=== PATIENT | female | born 1965 | race Caucasian/White ===

== ENCOUNTER → 2020-02-22 | Outpatient (CLI) | payer SELFPAY | LOC: GOCC 22:21 | PROVIDERS: ATTEND General Practice | DX: N39.0 Urinary tract infection, site not specified (principal) ==

== ENCOUNTER 2020-02-24 01:16 | Emergency (ER) | payer SELFPAY ==
[2020-02-24] MEDS ORDERED: SODIUM CHLORIDE 0.9% 1000ML 1,000 ML IVS PRN (01:37)
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
[2020-02-24] MEDS ORDERED: cefTRIAXone SODIUM 1 GM in SODIUM CHL 0.9% 50ML MIN-BAG+ 50 ML IVPB ONE (03:04)
--- NOTE | 2020-02-24 03:42 | RAD ---
EXAM DESCRIPTION: Chest,1 View CLINICAL HISTORY: altered mental status COMPARISON: None. FINDINGS: Single frontal view of the chest. Cardiomediastinal silhouette: Normal size and contour. Leads overlie the chest. Lungs: Left mid and lower lung airspace opacity. Low lung volumes. No pneumothorax. Bones: Postoperative change of the thoracolumbar spine. Upper abdomen: Prior cholecystectomy. IMPRESSION: 1. Left mid and lower lung opacity concerning for pneumonia. Electronically signed by: Arash Ellis 02/24/2020 3:40 AM CDT
--- NOTE | 2020-02-24 03:47 | CT ---
EXAM DESCRIPTION: CT of the head without contrast CLINICAL HISTORY: ams COMPARISON: None available TECHNIQUE: Axial CT of the head obtained from the skull apex to the skull base without contrast. FINDINGS: No acute intracranial hemorrhage identified. No mass, mass effect, shift of the midline, abnormal extra-axial fluid collection or CT evidence of acute ischemic change identified. The ventricular system and sulcal spaces are nonenlarged. Scattered areas of hypodensity throughout the supratentorial white matter are nonspecific and may be related to chronic small vessel ischemic change. The visualized paranasal sinuses and the mastoids are clear. No skull fracture identified. Visualized orbits and globes are unremarkable. Atherosclerotic calcification of the intracranial internal carotid arteries. IMPRESSION: 1. No acute intracranial abnormality by CT criteria. This exam was performed according to our departmental dose-optimization program, which includes automated exposure control, adjustment of the mA and/or kV according to patient size and/or use of iterative reconstruction technique. Electronically signed by: Arash Ellis 02/24/2020 3:45 AM CDT
[2020-02-24] MEDS ORDERED: CEFEPIME 2 GM in SODIUM CHL 0.9% 100ML MINI-BAG 100 ML IVPB ONE (04:05)
[2020-02-24 04:27] VITALS: O2SAT 94
[2020-02-24] MEDS ORDERED: NOREPINEPHRINE BITARTRATE 4 MG in DEXTROSE 5% 250ML 250 ML IVPB SCH (04:30)
[2020-02-24 05:04] VITALS: BP 80/54; TEMP 97.4
--- NOTE | 2020-02-24 05:15 | CT ---
EXAM: CT abdomen and pelvis without intravenous contrast CLINICAL DATA: 54-year-old female with sepsis TECHNICAL DATA: Axial CT imaging of the abdomen and pelvis was performed without oral or intravenous contrast. Sagittal and coronal reconstructed images were then performed. The CT study is performed according to ALARA (as low as reasonably achievable) or ALARA/IMAGE GENTLY, with automatic adjustment of mA and/or kV according to patient size. Performed on: 02/24/2020 at 4:15 AM Comparison: None. FINDINGS: Lung bases: The lung bases are clear. There is minimal bibasilar atelectasis and/or fibrosis. Liver: The liver is enlarged and measures 20.3 cm in craniocaudal dimension. No focal hepatic abnormalities are appreciated on this unenhanced scan. Liver attenuation is within normal limits. Spleen: The spleen is enlarged and measures approximately 14.4 cm in craniocaudal dimension. No focal splenic abnormalities are appreciated on this unenhanced scan. Gallbladder and bile duct: The gallbladder is surgically absent. There is no biliary ductal dilatation. Pancreas: The pancreas is grossly normal in size and configuration. Adrenal Glands:The adrenal glands are normal in size and configuration. Kidneys:The kidneys are normal in size and configuration. There appears to be mild bilateral hydronephrosis without evidence of urinary tract obstruction. There is no evidence of nephrolithiasis. No focal renal abnormalities are identified. Stomach:The stomach is grossly normal. There is no definite hiatal hernia. Bowel:The bowel gas pattern is non specific and non obstructive. There is scattered colonic diverticulosis. Appendix: The appendix is normal. Free air:There is no evidence of free air. Free fluid: There is no evidence of free fluid. Vasculature: The aorta is normal in caliber and contour. The inferior vena cava is grossly unremarkable. Lymphadenopathy: There appear to be prominent retroperitoneal lymph nodes. Evaluation is somewhat limited without intravenous contrast. Bladder: The bladder is well distended. There is a Avelar catheter in the bladder and there is air in the bladder which is likely iatrogenic in nature related to the Avelar catheter. A gas forming infection is not entirely excluded. Reproductive: The uterus is grossly within normal limits. Bones: No acute osseous abnormalities are identified. There are remote postsurgical changes of the thoracolumbar spine consistent with posterior decompression and fusion from T9 through L2. No definite hardware failure is identified. Soft tissues: No focal soft tissue abnormalities are identified. There is streak artifact related to the indwelling thoracolumbar hardware and overlying quality assurance monitor chassis leads which does result in slight degradation of image quality. IMPRESSION: 1. Hepatosplenomegaly.. 2. Mild bilateral hydronephrosis without clear etiology. There is no evidence of ureterolithiasis. 3. Prominent retroperitoneal lymph nodes. Evaluation is somewhat limited without intravenous contrast. 4. Air in the bladder which may be iatrogenic in nature related to the indwelling Avelar catheter. A gas forming infection is not entirely excluded. 5. Scattered colonic diverticulosis. 6. Remote cholecystectomy. 7. There is streak artifact on the images related to the patient's thoracolumbar hardware and overlying quality assurance monitor chassis leads which does result in slight degradation of image quality. Electronically signed by: Izzy Morales DO 02/24/2020 5:13 AM CDT
== END 2020-02-24 05:18 | disposition short-term general hospital (02) ==
LOC: ER 01:16
DX: U07.1 COVID-19 (principal); A41.9 Sepsis, unspecified organism; R65.21 Severe sepsis with septic shock; E87.1 Hypo-osmolality and hyponatremia; J18.9 Pneumonia, unspecified organism; Y95 Nosocomial condition; T83.511A Infection and inflammatory reaction due to indwelling urethral catheter, initial encounter; Y84.6 Urinary catheterization as the cause of abnormal reaction of the patient, or of later complication, without mention of misadventure at the time of the procedure; N17.9 Acute kidney failure, unspecified; R31.0 Gross hematuria; G82.20 Paraplegia, unspecified; Z87.820 Personal history of traumatic brain injury; Z79.899 Other long term (current) drug therapy; Z88.8 Allergy status to other drugs, medicaments and biological substances
CPT/HCPCS: 70450; 71045; 74176; 80053; 80307; 80329; 81001; 82140; 82550; 82553; 83605; 83735; 84100; 84300; 84443; 84484; 85025; 85610; 85730; 87040; 87077; 87086; 87186; 87635; J0692; J0696; J7030; J7050; J7060

== ENCOUNTER 2020-03-10 13:11 | Emergency (ER) | payer SELFPAY ==
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
[2020-03-10] MEDS ORDERED: SODIUM CHLORIDE 0.9% 1000ML 1,000 ML IVS ONE ×2 (14:02→16:49)
[2020-03-10] MEDS ORDERED: VANCOMYCIN HCL INJ 1,000 MG, VANCOMYCIN HCL INJ 500 MG in SODIUM CHLORIDE 0.9% 250ML 25... IVPB ONE (14:03)
[2020-03-10] MEDS ORDERED: PIPERACILLIN/TAZOBACTAM 3.375 GM in SODIUM CHLORIDE 0.9% 100ML 100 ML IVPB ONE (14:03)
[2020-03-10] MEDS ORDERED: levoFLOXacin 750MG IV 750 MG in PREMIX BAG 1 BAG IVPB ONE (18:55)
[2020-03-10] MEDS ORDERED: NOREPINEPHRINE BITARTRATE 4 MG in DEXTROSE 5% 250ML 250 ML IVPB SCH (19:00)
[2020-03-10] MEDS ORDERED: LIDOCAINE 1% 10 ML VIAL INJ ONE (19:11)
[2020-03-10 20:04] VITALS: BP 132/79; TEMP 98.2; O2SAT 95
--- NOTE | 2020-03-10 20:13 | RAD ---
EXAM DESCRIPTION: Chest,1 View CLINICAL HISTORY: fever COMPARISON: February 24, 2020 IMPRESSION: Single AP portable upright view of the chest shows mild enlargement of the cardiac silhouette without pulmonary vascular congestion.. Lungs are normally aerated and clear. Interval resolution of the left mid to lower chest infiltrate seen on previous exam. Spinal hardware fixation of the lower thoracic to upper lumbar spine is again seen. No obvious pleural effusion or pneumothorax is seen. Electronically signed by: Mendel Canseco MD 03/10/2020 2:33 PM CDT
--- NOTE | 2020-03-10 20:18 | RAD ---
EXAM DESCRIPTION: Chest,1 View CLINICAL HISTORY: 54 years Female, post central line COMPARISON: 03/10/2020 TECHNIQUE: Single AP chest radiograph. FINDINGS: Interval placement of a right IJ central venous catheter with tip terminating in the right atrium. No pneumothorax. Stable cardiac mediastinal contour and bilateral pulmonary opacities. No pleural effusion. Thoracolumbar fixation hardware again noted. IMPRESSION: 1. Right central venous catheter tip terminates in the right atrium. No pneumothorax. 2. Stable pulmonary opacities. Electronically signed by: Rayo Shi MD 03/10/2020 8:11 PM CDT
== END 2020-03-10 20:35 | disposition short-term general hospital (02) ==
LOC: ER 13:11
DX: A41.89 Other specified sepsis (principal); U07.1 COVID-19; N12 Tubulo-interstitial nephritis, not specified as acute or chronic; R65.20 Severe sepsis without septic shock; Z87.891 Personal history of nicotine dependence; G82.20 Paraplegia, unspecified; Z90.49 Acquired absence of other specified parts of digestive tract; Z79.899 Other long term (current) drug therapy
CPT/HCPCS: 36415; 71045; 80053; 81001; 83605; 85025; 87040; 87086; 87635; 93005; J1956; J2543; J3370; J7030; J7050; J7060

== ENCOUNTER 2020-04-03 17:10 | Emergency (ER) | payer MEDICAID ==
[2020-04-03] MEDS ORDERED: SODIUM CHLORIDE 0.9% 1000ML 1,000 ML IVS ONE ×2 (17:19→19:00)
[2020-04-03] MEDS ORDERED: cefTRIAXone SODIUM 2 GM in SODIUM CHL 0.9% 100ML MINI-BAG 100 ML IVPB ONE (17:19)
[2020-04-03] MEDS ORDERED: SODIUM CHLORIDE 0.9% (FLUSH) 10 ML SYG IV PRN (17:19)
[2020-04-03] MEDS ORDERED: SODIUM CHLORIDE 0.9% 1000ML 2,000 ML IVS ONE (17:20)
[2020-04-03] MEDS ORDERED: CEFEPIME 2 GM in SODIUM CHL 0.9% 100ML MINI-BAG 100 ML IVPB ONE (17:26)
[2020-04-03] MEDS ORDERED: HYDROCORTISONE SOD SUCC INJ 100 MG/2 ML VIAL IV ONE (17:46)
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
--- NOTE | 2020-04-03 18:29 | RAD ---
EXAM DESCRIPTION: Chest,1 View CLINICAL HISTORY: 54 years Female possible sepsis COMPARISON: 03/10/2020 FINDINGS: The cardiomediastinal silhouette appears unremarkable. No definite pleural effusion. Patchy pulmonary opacities unchanged from the prior examination. No pneumothorax. Post surgical changes in the spine. IMPRESSION: Unchanged appearance of the chest Electronically signed by: Leonor Benson MD 04/03/2020 6:27 PM CDT
[2020-04-03] MEDS ORDERED: SODIUM CHLORIDE 0.9% 1000ML 1,000 ML ONE (19:03)
[2020-04-03 20:16] VITALS: TEMP 97.4
[2020-04-03 20:18] VITALS: BP 92/63; O2SAT 97
== END 2020-04-03 19:40 | disposition short-term general hospital (02) ==
LOC: ER 17:10
DX: A41.9 Sepsis, unspecified organism (principal); N17.9 Acute kidney failure, unspecified; D72.829 Elevated white blood cell count, unspecified; T83.511A Infection and inflammatory reaction due to indwelling urethral catheter, initial encounter; G82.20 Paraplegia, unspecified; R00.0 Tachycardia, unspecified; Z87.820 Personal history of traumatic brain injury; Z87.891 Personal history of nicotine dependence; I95.9 Hypotension, unspecified
CPT/HCPCS: 36415; 71045; 80053; 81001; 83605; 85025; 85610; 85730; 87040; 87086; 87088; 87186; 93005; J0692; J1720; J7030; J7050

== ENCOUNTER 2020-04-15 16:57 | Inpatient (IN) | payer MEDICAID, OTHER ==
[2020-04-15] MEDS ORDERED: CEFEPIME 1 GM in SODIUM CHLORIDE 0.9% 50ML 50 ML IVPB ONE (17:18)
[2020-04-15] MEDS ORDERED: levoFLOXacin 500MG IV 500 MG in PREMIX BAG 1 BAG IVPB ONE (17:18)
[2020-04-15] MEDS ORDERED: SODIUM CHLORIDE 0.9% 1000ML 1,000 ML IVS ONE (18:43)
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
[2020-04-15] MEDS ORDERED: ONDANSETRON ODT 8 MG TAB ONE (18:58)
[2020-04-15] MEDS ORDERED: ONDANSETRON ODT 8 MG TAB SL ONE (19:05)
[2020-04-15] MEDS ORDERED: FLUCONAZOLE 100 MG TAB PO ONE (19:14)
[2020-04-15] MEDS ORDERED: methylPREDNISolone SODIUM SUC 125 MG/2 ML VIAL IV ONE (19:14)
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
[2020-04-15] MEDS ORDERED: ACETAMINOPHEN 500 MG TAB PO ONE (20:18)
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
[2020-04-15] MEDS ORDERED: ALBUTEROL SULFATE 2.5 MG/3 ML VIAL NEB PRN (22:37)
[2020-04-15] MEDS ORDERED: SODIUM CHLORIDE 0.9% (FLUSH) 10 ML SYG IV PRN (22:37)
[2020-04-15] MEDS ORDERED: IV SET AND CAP CHANGE INJ INJ SCH (23:00)
[2020-04-16] MEDS: SODIUM CHLORIDE 0.45% 1000ML 1,000 ML IV PRN ×2 (00:02→15:19)
[2020-04-16] MEDS ORDERED: SODIUM CHLORIDE 0.9% 50ML 50 ML ONE (05:02)
[2020-04-16] MEDS ORDERED: CEFEPIME 2 GM VIAL ONE (05:02)
[2020-04-16] MEDS: CEFEPIME 1 GM in SODIUM CHLORIDE 0.9% 50ML 50 ML IVPB SCH ×2 (05:41→18:25)
[2020-04-16] MEDS: MAGNESIUM HYDROXIDE 30 ML UD PO SCH ×2 (05:42→09:53)
[2020-04-16] MEDS ORDERED: [UNRECOGNIZED DRUG - OTHER] PO SCH (09:00)
[2020-04-16] MEDS: MEGESTROL ACETATE SUSP 400 MG/10 ML UD PO SCH (09:52)
[2020-04-16] MEDS: BISACODYL TAB 5 MG TAB PO SCH (09:53)
[2020-04-16] MEDS: FERROUS SULFATE 325 MG TAB PO SCH (09:53)
[2020-04-16] MEDS: FOLIC ACID 1 MG TAB PO SCH (09:53)
[2020-04-16] MEDS: ASPIRIN (ENTERIC COATED) 81 MG TAB PO SCH (09:53)
[2020-04-16] MEDS: GABAPENTIN 300 MG CAP PO SCH (09:53)
[2020-04-16] MEDS: DOCUSATE SODIUM 100 MG CAP PO SCH (09:53)
[2020-04-16] MEDS: levoFLOXacin 500MG IV 500 MG in PREMIX BAG 1 BAG IVPB SCH (09:54)
[2020-04-16] MEDS: DOXAZOSIN MESYLATE 2 MG TAB PO SCH (09:58)
[2020-04-16] MEDS: LACTOBACILLUS 1 TAB PO SCH ×3 (09:59→20:35)
[2020-04-16] MEDS: POLYETHYLENE GLYCOL 3350 17 GM PCKT PO SCH (10:03)
[2020-04-16] MEDS: SODIUM CHLORIDE 0.9% (FLUSH) 10 ML SYG IV SCH ×2 (10:03→20:36)
[2020-04-16] MEDS: NICOTINE PATCH 14 MG TD SCH (13:16)
[2020-04-16] MEDS: NON-FORMULARY MEDICATION 1 EA MIS (Methocarbamol [Methocarbamol] 500 MG) PO SCH ×2 (18:25→20:36)
[2020-04-16] MEDS ORDERED: hydrOXYzine HCl 25 MG TAB ONE (19:12)
[2020-04-16] MEDS ORDERED: MELATONIN 3 MG TAB ONE (19:12)
[2020-04-16] MEDS ORDERED: ENOXAPARIN SODIUM 40 MG/0.4 ML SYG SUBCU ONE (19:13)
[2020-04-16] MEDS ORDERED: risperiDONE 0.25 MG TAB ONE (19:13)
[2020-04-16] MEDS: hydrOXYzine HCl 25 MG TAB PO SCH (20:33)
[2020-04-16] MEDS: MELATONIN 3 MG TAB PO SCH (20:33)
[2020-04-16] MEDS: risperiDONE 1 MG TAB PO SCH (20:34)
[2020-04-16] MEDS: ENOXAPARIN SODIUM 40 MG/0.4 ML SYG SUBCU SCH (20:38)
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
[2020-04-16] MEDS: ACETAMINOPHEN 325 MG TAB PO PRN (23:03)
[2020-04-17] MEDS: SODIUM CHLORIDE 0.45% 1000ML 1,000 ML IV PRN ×2 (04:53→19:37)
[2020-04-17] MEDS: CEFEPIME 1 GM in SODIUM CHLORIDE 0.9% 50ML 50 ML IVPB SCH ×2 (05:37→18:22)
[2020-04-17] MEDS: POLYETHYLENE GLYCOL 3350 17 GM PCKT PO SCH (09:53)
[2020-04-17] MEDS: levoFLOXacin 500MG IV 500 MG in PREMIX BAG 1 BAG IVPB SCH (09:54)
[2020-04-17] MEDS: BISACODYL TAB 5 MG TAB PO SCH (09:54)
[2020-04-17] MEDS: GABAPENTIN 300 MG CAP PO SCH (09:54)
[2020-04-17] MEDS: DOXAZOSIN MESYLATE 2 MG TAB PO SCH (09:54)
[2020-04-17] MEDS: ACETAMINOPHEN 325 MG TAB PO PRN ×2 (09:54→23:50)
[2020-04-17] MEDS: FERROUS SULFATE 325 MG TAB PO SCH (09:55)
[2020-04-17] MEDS: FOLIC ACID 1 MG TAB PO SCH (09:55)
[2020-04-17] MEDS: DOCUSATE SODIUM 100 MG CAP PO SCH (09:55)
[2020-04-17] MEDS: MEGESTROL ACETATE SUSP 400 MG/10 ML UD PO SCH (09:55)
[2020-04-17] MEDS: ASPIRIN (ENTERIC COATED) 81 MG TAB PO SCH (09:55)
[2020-04-17] MEDS: LACTOBACILLUS 1 TAB PO SCH ×3 (09:56→21:24)
[2020-04-17] MEDS: NON-FORMULARY MEDICATION 1 EA MIS (Methocarbamol [Methocarbamol] 500 MG) PO SCH ×2 (09:57→14:57)
[2020-04-17] MEDS: SODIUM CHLORIDE 0.9% (FLUSH) 10 ML SYG IV SCH ×2 (09:57→21:25)
[2020-04-17] MEDS: NICOTINE PATCH 14 MG TD SCH (09:57)
[2020-04-17] MEDS: REMOVE OLD PATCH TOP SCH (09:57)
[2020-04-17] MEDS ORDERED: METHOCARBAMOL 750 MG TAB PO ONE (15:06)
[2020-04-17] MEDS ORDERED: METHOCARBAMOL 750 MG TAB ONE (18:26)
[2020-04-17] MEDS ORDERED: risperiDONE 0.25 MG TAB ONE (19:07)
[2020-04-17] MEDS: MELATONIN 3 MG TAB PO SCH (21:24)
[2020-04-17] MEDS: hydrOXYzine HCl 25 MG TAB PO SCH (21:24)
[2020-04-17] MEDS: ENOXAPARIN SODIUM 40 MG/0.4 ML SYG SUBCU SCH ×2 (21:24→21:36)
[2020-04-17] MEDS: risperiDONE 1 MG TAB PO SCH (21:25)
[2020-04-17] MEDS: METHOCARBAMOL 750 MG TAB PO SCH (21:33)
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
[2020-04-18] MEDS: CEFEPIME 1 GM in SODIUM CHLORIDE 0.9% 50ML 50 ML IVPB SCH (05:58)
[2020-04-18] MEDS: GABAPENTIN 300 MG CAP PO SCH (10:05)
[2020-04-18] MEDS: DOCUSATE SODIUM 100 MG CAP PO SCH (10:05)
[2020-04-18] MEDS: MEGESTROL ACETATE SUSP 400 MG/10 ML UD PO SCH (10:05)
[2020-04-18] MEDS: FOLIC ACID 1 MG TAB PO SCH (10:05)
[2020-04-18] MEDS: METHOCARBAMOL 750 MG TAB PO SCH (10:05)
[2020-04-18] MEDS: ASPIRIN (ENTERIC COATED) 81 MG TAB PO SCH (10:06)
[2020-04-18] MEDS: FERROUS SULFATE 325 MG TAB PO SCH (10:06)
[2020-04-18] MEDS: BISACODYL TAB 5 MG TAB PO SCH (10:06)
[2020-04-18] MEDS: DOXAZOSIN MESYLATE 2 MG TAB PO SCH (10:06)
[2020-04-18] MEDS: NICOTINE PATCH 14 MG TD SCH (10:06)
[2020-04-18] MEDS: REMOVE OLD PATCH TOP SCH (10:07)
[2020-04-18] MEDS: levoFLOXacin 500MG IV 500 MG in PREMIX BAG 1 BAG IVPB SCH (10:07)
[2020-04-18] MEDS: SODIUM CHLORIDE 0.9% (FLUSH) 10 ML SYG IV SCH (10:07)
[2020-04-18] MEDS: LACTOBACILLUS 1 TAB PO SCH (10:07)
[2020-04-18] MEDS: POLYETHYLENE GLYCOL 3350 17 GM PCKT PO SCH (10:07)
[2020-04-18 15:41] VITALS: BP 108/64; TEMP 98.1; O2SAT 97
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
== END 2020-04-18 12:30 | DRG 698 ==
LOC: ER 16:57 → MS 22:00 → UNDOADMIN 22:00 → MS 22:01
PROVIDERS: ADMIT Nurse Practitioner Acute Care; ATTEND Nurse Practitioner Family
DX: T83.511A Infection and inflammatory reaction due to indwelling urethral catheter, initial encounter (principal); A41.52 Sepsis due to Pseudomonas; N12 Tubulo-interstitial nephritis, not specified as acute or chronic; L89.153 Pressure ulcer of sacral region, stage 3; G82.20 Paraplegia, unspecified; K59.09 Other constipation; F17.210 Nicotine dependence, cigarettes, uncomplicated; J44.9 Chronic obstructive pulmonary disease, unspecified; Z88.8 Allergy status to other drugs, medicaments and biological substances; Z86.19 Personal history of other infectious and parasitic diseases

== ENCOUNTER 2020-06-29 02:37 | Inpatient (IN) | payer OTHER ==
[2020-06-29] MEDS ORDERED: methylPREDNISolone SODIUM SUC 125 MG/2 ML VIAL IV ONE (02:57)
[2020-06-29] MEDS ORDERED: SODIUM CHLORIDE 0.9% 1000ML 1,000 ML IVS ONE ×2 (02:57→10:11)
[2020-06-29] MEDS ORDERED: CEFEPIME 1 GM in SODIUM CHLORIDE 0.9% 50ML 50 ML IVPB ONE (03:08)
[2020-06-29] MEDS ORDERED: levoFLOXacin 500MG IV 500 MG in PREMIX BAG 1 BAG IVPB ONE (03:08)
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
--- NOTE | 2020-06-29 04:25 | CT ---
CLINICAL HISTORY: sepsis, abd pain COMPARISON: April 15, 2020. TECHNIQUE: CT ABDOMEN PELVIS WITHOUT IV CONTRAST on 06/29/2020 3:11 AM LINE ASSIGNER This exam was performed according to our departmental dose-optimization program, which includes automated exposure control, adjustment of the mA and/or kV according to patient size and/or use of iterative reconstruction technique. FINDINGS: Lower lungs are clear. Abdomen: The liver is normal in appearance. There is no biliary dilatation. Cholecystectomy was performed. The pancreas and spleen are normal in appearance. The adrenal glands and right kidney are unremarkable. There is mild left hydronephrosis and hydroureter. Abdominal aorta is normal in course and caliber without aneurysm. There is no free air. There is no retroperitoneal adenopathy. Pelvis: There is mild diverticulosis of the distal colon. Urinary bladder wall is thickened with small amount of air. Avelar catheter is present with the distal tip of the catheter obstructing the left ureter. There is no free fluid. Uterus is normal in size. Appendix is normal. Skeleton: There are no acute osseous findings. No suspicious bony lesions. IMPRESSION: Left hydronephrosis secondary to obstruction from the distal tip of Avelar catheter. Probable cystitis. Electronically signed by: Aidan Baer MD 06/29/2020 4:24 AM LINE ASSIGNER
--- NOTE | 2020-06-29 04:27 | RAD ---
CLINICAL HISTORY: low bp COMPARISON: 04/03/2020. TECHNIQUE: XR CHEST 1 VIEW 06/29/2020 2:57 AM MEETING MANAGER FINDINGS: The heart is borderline in size. There are mild interstitial opacities throughout both lungs. There is no pleural effusion. There is no pneumothorax. Extensive thoracolumbar fusion was performed. IMPRESSION: No significant change. Electronically signed by: Aidan Baer MD 06/29/2020 4:26 AM MEETING MANAGER
--- NOTE | 2020-06-29 04:33 | CT ---
EXAM DESCRIPTION: Lower Extremity CLINICAL HISTORY: 54 years Female, rt ankle lat ulcer, sepsis? COMPARISON: None Available. TECHNIQUE: CT of the right ankle without IV contrast. Evaluation of the soft tissues and vasculature is suboptimal due to lack of IV contrast. FINDINGS: Soft tissue: Fat stranding within the subcutaneous soft tissues at the level of the ankle. No well-circumscribed fluid collection. No definite joint effusion. Bones: No definite fracture identified. Numerous punched-out lucencies of the distal tibia, fibula, talus, calcaneus, navicular, and visualized cuneiforms and cuboid. No definite periosteal elevation. There is likely underlying chronic sclerosis of these bones. IMPRESSION: 1. Numerous scattered punched out lucencies involving all of the bones of the ankle with underlying likely chronic sclerosis. These findings could be seen with osteomyelitis. Other causes of punched out lucency including multiple myeloma may also produce to this appearance. MRI of the foot would provide more complete characterization. 2. Edema within the soft tissues of the ankle. Cellulitis could produce this appearance. No well-circumscribed fluid collections. This exam was performed according to our departmental dose-optimization program, which includes automated exposure control, adjustment of the mA and/or kV according to patient size and/or use of iterative reconstruction technique. Electronically signed by: Arash Ellis 06/29/2020 4:31 AM CLINICAL RESEARCH ADMINISTRATOR
[2020-06-29] MEDS ORDERED: KCL 20 MEQ/NS 1,000 ML IVS ONE (06:11)
[2020-06-29] MEDS ORDERED: ACETAMINOPHEN 325 MG TAB PO ONE (06:36)
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
[2020-06-29] MEDS ORDERED: MAGNESIUM SULFATE PREMIX 2GM 2 GM in PREMIX BAG 1 BAG IVPB ONE (09:36)
[2020-06-29] MEDS ORDERED: SODIUM CHLORIDE 0.9% (FLUSH) 10 ML SYG IV PRN (09:42)
[2020-06-29] MEDS ORDERED: ONDANSETRON INJ 4 MG/2 ML VIAL IV PRN (09:42)
[2020-06-29] MEDS ORDERED: VANCOMYCIN PER PHARMACY IVPB SCH (10:00)
[2020-06-29] MEDS ORDERED: VANCOMYCIN HCL INJ 1,000 MG in SODIUM CHLORIDE 0.9% 250ML 250 ML IVPB SCH (11:00)
[2020-06-29] MEDS: IV SET AND CAP CHANGE INJ INJ SCH (12:09)
[2020-06-29] MEDS: ACETAMINOPHEN 325 MG TAB PO PRN ×2 (15:28→22:46)
[2020-06-29] MEDS: CEFEPIME 1 GM in SODIUM CHLORIDE 0.9% 50ML 50 ML IVPB SCH (15:29)
[2020-06-29] MEDS ORDERED: DULoxetine HCL 30 MG CAP PO ONE (19:37)
[2020-06-29] MEDS ORDERED: MELATONIN 3 MG TAB ONE (19:38)
[2020-06-29] MEDS ORDERED: IBUPROFEN 400 MG TAB ONE (19:44)
[2020-06-29] MEDS: risperiDONE 1 MG TAB PO SCH (19:48)
[2020-06-29] MEDS: IBUPROFEN 200 MG TAB PO PRN (19:48)
[2020-06-29] MEDS: MELATONIN 3 MG TAB PO SCH (19:49)
[2020-06-29] MEDS ORDERED: NON-FORMULARY MEDICATION 1 EA MIS (Melatonin [Melatonin] 5 MG) PO SCH (21:00)
[2020-06-29] MEDS ORDERED: NON-FORMULARY MEDICATION 1 EA MIS (Duloxetine Hcl [Cymbalta] 60 MG) PO SCH (21:00)
[2020-06-30] MEDS: CEFEPIME 1 GM in SODIUM CHLORIDE 0.9% 50ML 50 ML IVPB SCH ×2 (03:13→15:11)
[2020-06-30] MEDS ORDERED: IBUPROFEN 400 MG TAB ONE (06:16)
[2020-06-30] MEDS: IBUPROFEN 200 MG TAB PO PRN ×3 (06:17→23:39)
[2020-06-30] MEDS ORDERED: POLYETHYLENE GLYCOL 3350 17 GM PCKT ONE (07:48)
[2020-06-30] MEDS: DOCUSATE SODIUM 100 MG CAP PO SCH (09:40)
[2020-06-30] MEDS: POLYETHYLENE GLYCOL 3350 17 GM PCKT PO SCH (09:40)
[2020-06-30] MEDS: ASPIRIN (ENTERIC COATED) 81 MG TAB PO SCH (09:40)
[2020-06-30] MEDS: FERROUS SULFATE 325 MG TAB PO SCH (09:40)
[2020-06-30] MEDS: MEGESTROL ACETATE SUSP 400 MG/10 ML UD PO SCH (09:40)
[2020-06-30] MEDS: GABAPENTIN 300 MG CAP PO SCH (09:41)
[2020-06-30] MEDS: ACETAMINOPHEN 325 MG TAB PO PRN ×2 (10:43→19:27)
[2020-06-30] MEDS: VANCOMYCIN HCL INJ 750 MG in SODIUM CHLORIDE 0.9% 250ML 250 ML IVPB SCH ×2 (10:48→23:20)
--- NOTE | 2020-06-30 11:38 | PN ---
SUPERVISING PHYSICIAN: Erik Birch MD DATE: 06/30/20 SUBJECTIVE: The patient feels okay today with no complaints of pain at this point. She feels like she has a little bit more energy than she did. OBJECTIVE: VITAL SIGNS: Blood pressure 91/56, heart rate 68, respiratory rate 18, temperature 98.2, oxygen saturation 95%. GENERAL: Ms. Grace is a 54-year-old female who is in no active distress at this time. NEUROLOGIC: The patient is alert. LUNGS: Clear to auscultation bilaterally. CARDIOVASCULAR: Regular rate and rhythm. Normal S1, S2. ABDOMEN: Soft. Positive bowel sounds. EXTREMITIES: Lower extremities with small muscle wasting as she is chronically paraplegic. SKIN: With sacral decubitus and right ankle decubitus as well. ASSESSMENT: 1. Gram negative bacteremia secondary to urinary tract infection. 2. Left hydroureteronephrosis secondary to obstruction from the distal tip of the Avelar catheter. 3. Acute kidney injury secondary to #2. 4. Chronic paraplegia. 5. Preexisting decubitus ulcers to the right ankle and sacrum. 6. Chronic obstructive pulmonary disease with no exacerbation. 7. Anemia. PLAN: We will continue the cefepime until we have a final bacteria identification and sensitivity result back. She is afebrile and labs are looking a little bit better. Continue all other medications. She will likely need 2 weeks of IV antibiotics given the bacteremia. ADDENDUM: The patient did have an episode of hypotension this afternoon, treated with bolus fluids. Patient seems to be asymptomatic and remains alert. [facility][id number] [facility]
[2020-06-30] MEDS ORDERED: LACTATED RINGERS 500 ML IVS ONE (13:47)
[2020-06-30] MEDS ORDERED: DULoxetine HCL 30 MG CAP PO ONE (19:21)
[2020-06-30] MEDS ORDERED: diphenhydrAMINE HCL 12.5 MG/5 ML UD PO PRN (19:42)
[2020-06-30] MEDS ORDERED: diphenhydrAMINE HCL 25 MG CAP ONE (21:26)
[2020-06-30] MEDS: DULoxetine HCL 30 MG CAP PO SCH (21:29)
[2020-06-30] MEDS: MELATONIN 3 MG TAB PO SCH (21:29)
[2020-06-30] MEDS: risperiDONE 1 MG TAB PO SCH (21:29)
[2020-06-30] MEDS: diphenhydrAMINE HCL 25 MG CAP PO PRN (21:31)
[2020-07-01] MEDS: CEFEPIME 1 GM in SODIUM CHLORIDE 0.9% 50ML 50 ML IVPB SCH ×2 (03:09→15:09)
[2020-07-01] MEDS: ACETAMINOPHEN 325 MG TAB PO PRN ×2 (03:19→13:28)
[2020-07-01] MEDS: IBUPROFEN 200 MG TAB PO PRN ×2 (09:05→19:45)
[2020-07-01] MEDS: diphenhydrAMINE HCL 25 MG CAP PO PRN ×2 (09:05→19:45)
[2020-07-01] MEDS: FERROUS SULFATE 325 MG TAB PO SCH (09:05)
[2020-07-01] MEDS: GABAPENTIN 300 MG CAP PO SCH (09:05)
[2020-07-01] MEDS: MEGESTROL ACETATE SUSP 400 MG/10 ML UD PO SCH (09:05)
[2020-07-01] MEDS: ASPIRIN (ENTERIC COATED) 81 MG TAB PO SCH (09:05)
[2020-07-01] MEDS: DOCUSATE SODIUM 100 MG CAP PO SCH (09:05)
[2020-07-01] MEDS: POLYETHYLENE GLYCOL 3350 17 GM PCKT PO SCH (09:05)
[2020-07-01] MEDS ORDERED: MAGNESIUM SULFATE PREMIX 2GM 2 GM in PREMIX BAG 1 BAG IVPB ONE (09:39)
--- NOTE | 2020-07-01 11:08 | PN ---
SUPERVISING PHYSICIAN: Erik Birch MD DATE: 07/01/20 SUBJECTIVE: The patient has no complaints. No nausea or vomiting. No shortness of breath. She does not complain of any pain at this time. OBJECTIVE: VITAL SIGNS: Blood pressure 97/62, heart rate 62, respiratory rate 16, temperature 98.0, oxygen saturation 95%. GENERAL: Ms. Grace is a 54-year-old female who is in no active distress. NEUROLOGIC: The patient is alert. LUNGS: Clear to auscultation bilaterally. CARDIOVASCULAR: Regular rate and rhythm. Normal S1, S2. ABDOMEN: Soft. Positive bowel sounds. EXTREMITIES: Lower extremities with muscle wasting, adequate peripheral pulses. LABORATORY: White count 13.1, hemoglobin 9.7, hematocrit 28.4, platelet count 197. Chemistry with sodium 138, potassium 3.8, chloride 112, CO2 18, BUN 28, creatinine 0.72, glucose 112, magnesium 1.7, calcium 9.4. ASSESSMENT: 1. Gram negative bacteremia secondary to urinary tract infection. 2. Sepsis secondary to #1. 3. Left hydroureteronephrosis secondary to obstruction from the distal tip of the Avelar catheter. 4. Acute kidney injury secondary to #2. 5. Chronic paraplegia. 6. Preexisting decubitus ulcers to the right ankle and sacrum. 7. Chronic obstructive pulmonary disease with no exacerbation. 8. Anemia. PLAN: We will continue to await final bacteria identification with sensitivities. Continue cefepime until that time. She will need 14 days total of IV antibiotic therapy based on sensitivity results. As stated yesterday, the patient did have an episode of hypotension with a drop in her systolic into the 80s which responded to IV fluid bolus. Blood pressure has maintained in the 90s since then. #[id number] [facility]
[2020-07-01] MEDS: ENOXAPARIN SODIUM 40 MG/0.4 ML SYG SUBCU SCH (13:28)
[2020-07-01] MEDS: risperiDONE 1 MG TAB PO SCH (20:41)
[2020-07-01] MEDS: DULoxetine HCL 30 MG CAP PO SCH (20:41)
[2020-07-01] MEDS: MELATONIN 3 MG TAB PO SCH (20:41)
[2020-07-02] MEDS: diphenhydrAMINE HCL 25 MG CAP PO PRN (03:08)
[2020-07-02] MEDS: CEFEPIME 1 GM in SODIUM CHLORIDE 0.9% 50ML 50 ML IVPB SCH (03:09)
[2020-07-02] MEDS: ACETAMINOPHEN 325 MG TAB PO PRN ×2 (03:09→08:29)
[2020-07-02] MEDS: ASPIRIN (ENTERIC COATED) 81 MG TAB PO SCH (08:30)
[2020-07-02] MEDS: DOCUSATE SODIUM 100 MG CAP PO SCH (08:31)
[2020-07-02] MEDS: ENOXAPARIN SODIUM 40 MG/0.4 ML SYG SUBCU SCH (08:31)
[2020-07-02] MEDS: FERROUS SULFATE 325 MG TAB PO SCH (08:31)
[2020-07-02] MEDS: GABAPENTIN 300 MG CAP PO SCH (08:31)
[2020-07-02] MEDS: MEGESTROL ACETATE SUSP 400 MG/10 ML UD PO SCH (08:32)
[2020-07-02] MEDS: POLYETHYLENE GLYCOL 3350 17 GM PCKT PO SCH (08:32)
[2020-07-02] MEDS: IBUPROFEN 200 MG TAB PO PRN (10:23)
[2020-07-02] MEDS: IV SET AND CAP CHANGE INJ INJ SCH (11:38)
[2020-07-02 13:54] VITALS: BP 119/74; TEMP 98.2; O2SAT 97
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
== END 2020-07-02 13:00 | DRG 698 ==
LOC: ER 02:37 → OBSVTOIN 08:55 → MS 08:55
PROVIDERS: ADMIT Nurse Practitioner Family; ATTEND Nurse Practitioner Acute Care
DX: T83.511A Infection and inflammatory reaction due to indwelling urethral catheter, initial encounter (principal); A41.59 Other Gram-negative sepsis; R65.21 Severe sepsis with septic shock; N13.30 Unspecified hydronephrosis; N17.9 Acute kidney failure, unspecified; E87.2 Acidosis; G82.20 Paraplegia, unspecified; L89.153 Pressure ulcer of sacral region, stage 3; N39.0 Urinary tract infection, site not specified; T83.098A Other mechanical complication of other urinary catheter, initial encounter; L89.519 Pressure ulcer of right ankle, unspecified stage; J44.9 Chronic obstructive pulmonary disease, unspecified; D64.9 Anemia, unspecified; E83.42 Hypomagnesemia; S24.104S Unspecified injury at T11-T12 level of thoracic spinal cord, sequela; F17.210 Nicotine dependence, cigarettes, uncomplicated; Z86.19 Personal history of other infectious and parasitic diseases; Z96.0 Presence of urogenital implants; Z79.82 Long term (current) use of aspirin; Z79.899 Other long term (current) drug therapy; Z88.8 Allergy status to other drugs, medicaments and biological substances; V89.2XXS Person injured in unspecified motor-vehicle accident, traffic, sequela; Y73.2 Prosthetic and other implants, materials and accessory gastroenterology and urology devices associated with adverse incidents; Y92.129 Unspecified place in nursing home as the place of occurrence of the external cause; Y84.6 Urinary catheterization as the cause of abnormal reaction of the patient, or of later complication, without mention of misadventure at the time of the procedure